=== PATIENT | male | born 1975 | race Caucasian/White ===

== ENCOUNTER → 2019-03-21 | Outpatient (CLI) | payer BC ==
--- NOTE | 2019-03-21 21:07 | CONS ---
CONSULTATION DATE OF SERVICE: 03/21/2019 43-year-old gentleman had been evaluated in the sleep center for possible obstructive sleep apnea-hypopnea syndrome. HISTORY OF PRESENT ILLNESS/SLEEP WAKE EVALUATION: SLEEP SCHEDULE: Patient usual sleep schedule on working days from 10:30 p.m. until 6 a.m. and on weekends from 11 p.m. to 9 a.m. FALLING ASLEEP: No problems with falling asleep. No TV in bedroom. DURING SLEEP: He sleeps in different positions with snoring, awakenings from sleep with gasping for air. Stop breathing during, sleep talking, grinding teeth and occasional episodes of nocturia. DURING THE DAY/SLEEP WAKE EVALUATION: In the morning, patient wakes up tired. [place] Sleepiness Scale increased to 12. No history of hypnagogic hallucinations, sleep paralysis or cataplexy. If the patient takes naps, which he may take about 3:30 pm, he feels refreshed after nap and he may see vivid dreams during naps. PAST MEDICAL HISTORY: Positive for hypertension, hyperlipidemia. Allergies, coarctation of aorta. PAST SURGICAL HISTORY: Surgery for coarctation of aorta at age of 4. MEDICATIONS: Losartan, fenofibrate, aspirin, fexofenadine, , Cinnamon, vitamin D. SOCIAL HISTORY: Negative for smoking. Alcohol consumption occasional. FAMILY HISTORY: Cancer, diabetes, snoring. REVIEW OF SYSTEMS: Sleepiness during the day, snoring, awakenings from sleep with gasping for air and choking. PHYSICAL EXAM: gentleman without distress. BP 134/79, HR 75, RR 18, height 5 feet 11 inches, weight 248.0 pounds. Body mass index 34.5. Temperature 97.2, oxygen saturation at room air 96%. Oropharynx low position of soft palate. Mallampati 3. Some restriction of nasal breathing. Wide neck 18 inches in circumference. Neck Supple, no JVD. Thyroid is not palpable. LUNGS Clear to percussion and to auscultation. Good air exchange. No wheezing or rhonchi. HEART: Systolic murmur on aorta and pulmonary artery. ABDOMEN Soft and nontender. Bowel sounds are present. No organomegaly appreciated. EXTREMITIES No clubbing or cyanosis. JOURNEYMAN PAINTER Awake, alert, and oriented X3. Cranial nerves 2 to 7 intact. There is no fasciculation or atrophy. noted. No focal deficits observed. IMPRESSION: 1. Snoring, awakenings from sleep with choking and gasping for air and nocturia, low position of soft palate, wide neck, sleepiness, obstructive sleep apnea-hypopnea syndrome. 2. Hypertension. 3. Hyperlipidemia. 4. ALLERGIES. 5. Status post surgical treatment of aorta coarctation at age of 4. PLAN: 1. Home sleep apnea test for evaluation of the patient breathing during sleep. 2. Polysomnography for evaluation of patient's breathing during sleep. 3. CPAP/BiPAP titration if sleep study confirms obstructive sleep apnea-hypopnea syndrome. 4. Preferable position during sleep on the side. 5. No driving if patient feels any sleepiness. 6. I will see patient for follow up visit to explain results of testing and following plan. Thank you very much for referring this patient for consultation. Sincerely, Brett Hills MD, PhD, FAASM Diplomat of [employer] Finisher of [facility] Nettie MMODL / IJN: [id number] /
== END | disposition home or self-care (01) ==
LOC: SLEEP 15:44
PROVIDERS: ATTEND Internal Medicine
DX: G47.33 Obstructive sleep apnea (adult) (pediatric) (principal); I10 Essential (primary) hypertension; E78.5 Hyperlipidemia, unspecified; T78.40XA Allergy, unspecified, initial encounter; Z87.74 Personal history of (corrected) congenital malformations of heart and circulatory system; Z79.82 Long term (current) use of aspirin; Z79.899 Other long term (current) drug therapy
CPT/HCPCS: 99211

== ENCOUNTER → 2020-03-23 | Outpatient (CLI) | payer BC | END | disposition home or self-care (01) | LOC: CPPFTMAIN 12:53 | PROVIDERS: ATTEND Family Medicine | DX: J45.901 Unspecified asthma with (acute) exacerbation (principal); R94.2 Abnormal results of pulmonary function studies | CPT/HCPCS: 94060; 94726; 94729 ==

== ENCOUNTER → 2021-07-14 | Outpatient (CLI) | payer BC ==
--- NOTE | 2021-07-15 08:41 | ECHOF ---
Referral Reason:Q23.1 Congenital insufficiency of aortic valve MEASUREMENTS -------- HEIGHT: 177.8 cm WEIGHT: 108.9 kg BP: RVIDd: 4.0 cm (< 3.3) IVSd: 1.4 cm (0.6 - 1.1) LVIDd: 3.7 cm (3.9 - 5.3) LVPWd: 1.5 cm (0.6 - 1.1) IVSs: 1.8 cm LVIDs: 1.7 cm LVPWs: 1.7 cm LAESV Index (A-L): 18.59 ml/m Ao Diam: 3.1 cm (2.0 - 3.7) AV Cusp: 2.5 cm (1.5 - 2.6) LA Diam: 3.3 cm (2.7 - 3.8) MV EXCURSION: 14.924 mm (> 18.000) MV EF SLOPE: 78 mm/s (70 - 150) EPSS: 0.2 cm MV E Christofer: 1.09 m/s MV DecT: 254 ms MV A Christofer: 1.02 m/s MV E/A Ratio: 1.06 AV maxP.10 mmHg AV meanP.24 mmHg RAP: 5.00 mmHg RVSP: 30.28 mmHg FINDINGS -------- Sinus rhythm. This was a technically adequate study. The left ventricular size is normal. There is moderate concentric left ventricular hypertrophy. O verall left ventricular systolic function is normal with, an EF between 55 - 60 %. The diastolic fi lling pattern is normal for the age of the patient 10.56. The right ventricle is moderately enlarged. Normal LA size by volume 22+/-6 ml/m2. The right atrial size is normal. Interatrial and interventricular septum intact. There is no evidence of aortic regurgitation. There is mild aortic stenosis present. The maximum velocity across the aortic valve is 2.83m/s. Peak/mean gradient across the Aortic Valve is 33.10mmH g / 19.24mmHg. Functionally bicuspid aortic valve. AOV opens Bicuspid. No mitral regurgitation. Mild tricuspid regurgitation present. There is no evidence of pulmonary hypertension. The right v entricular systolic pressure, as measured by Doppler, is 30.28mmHg. There is no pulmonic regurgitation present. The aortic root size is normal. IVC Not well visulized. There is no pericardial effusion. CONCLUSIONS -------- 1. The left ventricular size is normal. 2. There is moderate concentric left ventricular hypertrophy. 3. Overall left ventricular systolic function is normal with, an EF between 55 - 60 %. 4. The right ventricle is moderately enlarged. 5. There is mild aortic stenosis present. 6. The maximum velocity across the aortic valve is 2.83m/s. 7. Peak/mean gradient across the Aortic Valve is 33.10mmHg / 19.24mmHg. 8. Functionally bicuspid aortic valve. 9. AOV opens Bicuspid. 10. Mild tricuspid regurgitation present. AGRICULTURAL EQUIPMENT SALES MANAGER: Sherine Navas RDCS
== END | disposition home or self-care (01) ==
LOC: RADECHMAIN 14:42
PROVIDERS: ATTEND Family Medicine
DX: Q23.1 Congenital insufficiency of aortic valve (principal); I07.1 Rheumatic tricuspid insufficiency
CPT/HCPCS: 93306

== ENCOUNTER → 2021-10-21 | Outpatient (CLI) | payer BC ==
--- NOTE | 2021-10-21 11:02 | XR ---
EXAMINATION TYPE: XR chest 2V DATE OF EXAM: 10/21/2021 COMPARISON: NONE HISTORY: Dry cough. TECHNIQUE: Frontal and lateral views of the chest are obtained. FINDINGS: There is no focal air space opacity, pleural effusion, or pneumothorax seen. The cardiac silhouette size is within normal limits. Partial fusion of the posterior left fifth and sixth ribs. IMPRESSION: No acute pulmonary process.
== END | disposition home or self-care (01) ==
LOC: RADXRMAIN 10:33
PROVIDERS: ATTEND Family Medicine
DX: R05.9 Cough, unspecified (principal)
CPT/HCPCS: 71046

== ENCOUNTER → 2024-03-12 | Outpatient (CLI) | payer BC ==
--- NOTE | 2024-03-12 18:45 | CA ---
Transthoracic Echo Report Name: Checo Miller Age: 48 Gender: M : 1975 Exam Date: 03/12/2024 16:49 Exam Location: [facility] Ht (in): 70 Wt (lb): 215 Ordering Physician: Zia Luu DO Attending/Referring Phys: Ayla Pineda [facility] Director Of Sports Medicine Evelyn Machuca RDCS Procedure CPT: Indications: Q23.1 CONGENITAL INSUFFICIENCY OF AORTIC VALVE Cardiac Hx: Technical Quality: Fair Contrast 1: Total Dose (mL): Contrast 2: Total Dose (mL): MEASUREMENTS (Male / Female) Normal Values 2D ECHO LV Diastolic Diameter PLAX 4.8 cm 4.2 - 5.9 / 3.9 - 5.3 cm LV Systolic Diameter PLAX 2.9 cm IVS Diastolic Thickness 1.2 cm 0.6 - 1.0 / 0.6 - 0.9 cm LVPW Diastolic Thickness 1.3 cm 0.6 - 1.0 / 0.6 - 0.9 cm LV Relative Wall Thickness 0.5 LVOT Diameter 2.3 cm LV Diastolic Volume MOD BP 133.5 cm??? 67 - 155 / 56 - 104 cm??? LV Systolic Volume MOD BP 63.6 cm??? 22 - 58 / 19 - 49 cm??? LV Ejection Fraction MOD BP 52.4 % >= 55 % LV Cardiac Index MOD BP 1920.1 cm???/min???m??? LV Diastolic Volume MOD 4C 138.5 cm??? LV Systolic Volume MOD 4C 66.9 cm??? LV Ejection Fraction MOD 4C 51.7 % LV Cardiac Index MOD 4C 1967.1 cm???/min???m??? LV Diastolic Length 4C 8.6 cm LV Systolic Length 4C 7.6 cm LV Diastolic Volume MOD 2C 122.1 cm??? LV Systolic Volume MOD 2C 56.3 cm??? LV Ejection Fraction MOD 2C 53.9 % LV Cardiac Index MOD 2C 1808.6 cm???/min???m??? LV Diastolic Length 2C 8.1 cm LV Systolic Length 2C 6.8 cm LA Volume 51.9 cm??? 18 - 58 / 22 - 52 cm??? LA Volume Index 23.4 cm???/m??? 16 - 28 cm???/m??? DOPPLER AV Peak Velocity 277.3 cm/s AV Peak Gradient 30.8 mmHg AV Mean Gradient 17.7 mmHg AV Velocity Time Integral 60.8 cm LVOT Peak Velocity 132.1 cm/s LVOT Peak Gradient 7.0 mmHg LVOT Velocity Time Integral 24.1 cm LVOT Stroke Volume 103.3 cm??? LVOT Stroke Volume Index 48.0 ml/m??? LVOT Cardiac Index 2837.9 cm???/min???m??? AV Area Cont Eq vti 1.7 cm??? AV Area Cont Eq pk 2.0 cm??? Mitral E Point Velocity 111.7 cm/s Mitral A Point Velocity 90.1 cm/s Mitral E to A Ratio 1.2 MV Deceleration Time 251.2 ms PV Peak Velocity 103.9 cm/s PV Peak Gradient 4.3 mmHg FINDINGS Left Ventricle Left ventricular ejection fraction is estimated at 55-60 %. Mildly increased septal wall thickness. Mildly increased left ventricular systolic volume. No obvious regional wall motion abnormalities. Right Ventricle Normal right ventricular size and function. Unable to estimate the right ventricular systolic pressure. Right Atrium Normal right atrial size. Left Atrium Normal left atrial size. Mitral Valve Structurally normal mitral valve. No mitral stenosis, regurgitation or prolapse. Aortic Valve Bicuspid aortic valve. Mild aortic stenosis, mean gradient of 18mmHg. No aortic regurgitation. Tricuspid Valve Structurally normal tricuspid valve. No tricuspid stenosis. No tricuspid regurgitation. Pulmonic Valve Structurally normal pulmonic valve. No pulmonic stenosis. No pulmonic regurgitation. Pericardium No pericardial effusion. Aorta Normal size aortic root and proximal ascending aorta. CONCLUSIONS Mild LVH with preserved systolic function Previewed by: Dr. Arturo Zarate MD (Electronically Signed) Final Date: 12 March 2024 18:44
== END | disposition home or self-care (01) ==
LOC: RADECHMAIN 16:41
PROVIDERS: ATTEND Family Medicine
DX: I51.7 Cardiomegaly (principal); Q23.1 Congenital insufficiency of aortic valve
CPT/HCPCS: 93306